=== PATIENT | female | born 1960 | race Caucasian/White ===

== ENCOUNTER 2017-12-16 14:47 | Emergency (ER) | payer MEDICARE, OTHER ==
--- NOTE | 2017-12-16 15:13 | ED Physician Documentation ---
General Adult - HISTORIAN Historian: patient - HPI Stated Complaint: Left Sided Facial Pressure/Pain Chief Complaint: General Adult Onset: days ago Timing: still present Severity: moderate Further Comments: yes (Pt is a 57 yo female with L-sided facial/sinus pain. Pt has had recurrent sinus issues. Current L sinus pain started 2 days ago. No fever, n/v. Pt has chronic fatigue syndrome and says that she is allergic to all mold-derived antibiotics.) - ROS CONST: other (chronic fatigue syndrome) EYES/ENT: other (L sinus pain) CVS/RESP: none GI/: none MS/SKIN/LYMPH: none - PAST HX Past History: other (recurrent sinus problems; breast cancer; fibromyalgia; chronic fatigue syndrome) Surgeries/Procedures: hysterectomy, other (catarac surgery; lumpectomy) Allergies/Adverse Reactions: Allergies Allergy/AdvReac Type Severity Reaction Status Date / Time codeine Allergy Verified 12/16/17 15:04 mold Allergy Verified 12/16/17 15:04 Penicillins Allergy Verified 12/16/17 15:04 steroids AdvReac Weakness Uncoded 12/16/17 15:04 Home Medications: Ambulatory Orders Medication Instructions Recorded Hydrocodone/Acetaminophen [Lortab 1 each PO 12/16/17 5-325 mg Tablet] - SOCIAL HX Smoking History: cigarettes - FAMILY HX Family History: No - VITAL SIGNS Vital Signs: Vital Signs Temp Pulse Resp BP Pulse Ox 96.4 F L 98 H 18 170/94 98 12/16/17 14:50 12/16/17 14:50 12/16/17 14:50 12/16/17 14:50 12/16/17 14:50 - REVIEWED ASSESSMENTS Nursing Assessment Reviewed: Yes Vitals Reviewed: Yes Progress - Progress Progress: Rx Z-telly. Use as directed on package. Rx [place] (5/325). Take one or two tablets by mouth every 4 to 6 hrs as needed for moderate to severe pain. Nasal washes 1 or 2 times daily as tolerated. Follow up with primary provider or Ear, Nose & Throat doctor if symptoms unimproved. General Adult Physical Exam - PHYSICAL EXAM GENERAL APPEARANCE: moderate distress EENT: eye inspection normal, other (L sinus tenderness) NECK: normal inspection, supple RESPIRATORY: no resp distress, chest non-tender, breath sounds normal CVS: reg rate & rhythm, heart sounds normal BACK: normal inspection SKIN: warm/dry, normal color EXTREMITIES: non-tender, normal range of motion, no evidence of injury NEURO: oriented X3, motor nml, sensation nml Discharge Clincal Impression: Sinus pain Referrals: Primary Doctor,No [Primary Care Provider] - Condition: Stable Disposition: 01 HOME, SELF-CARE Decision to Admit: NO Decision Time: 15:15
[2017-12-16 15:25] VITALS: BP 158/64
== END 2017-12-16 15:22 | disposition home or self-care (01) ==
LOC: ED 14:47
DX: J34.89 Other specified disorders of nose and nasal sinuses (principal)
CPT/HCPCS: 99282